=== PATIENT | female | born 1955 | race Caucasian/White ===

== ENCOUNTER 2018-10-28 19:30 | Emergency (ER) | payer OTHER ==
[2018-10-28 19:46] VITALS: BP 114/81; PULSE 74; TEMP 99; BMI 26.5
--- NOTE | 2018-10-28 20:35 | PDOC ---
History of Present Illness - General Chief Complaint: Cold Symptoms Stated Complaint: NOSE BLEED, SICK Time Seen by Provider: 10/28/18 20:02 Past History - Past Medical History Allergies/Adverse Reactions: Allergies Allergy/AdvReac Type Severity Reaction Status Date / Time No Known Allergies Allergy Verified 10/28/18 19:46 Home Medications: Ambulatory Orders Albuterol Sulfate Inhaler - [Ventolin HFA Inhaler -] 1 - 2 inh PO Q4H #1 inhaler 10/28/18 Amox-Tr/K Cl [Augmentin - 875Mg Tablet] 1 tab PO BID #20 tablet 10/28/18 Methylprednisolone [Medrol Dose Robert] 4 mg PO ASDIR #21 tablet 10/28/18 Sodium Chloride [Saline Nasal [place]] 1 spray NS QID #1 bottle 10/28/18 COPD: No Diabetes: Yes HTN: Yes - Suicide/Smoking/Psychosocial Hx Smoking History: Never smoked Have you smoked in the past 12 months: No Information on smoking cessation initiated: No Hx Alcohol Use: No Drug/Substance Use Hx: No *Physical Exam - Vital Signs Last Vital Signs Temp Pulse Resp BP Pulse Ox 99.0 F 74 16 114/81 100 10/28/18 19:41 10/28/18 19:41 10/28/18 19:41 10/28/18 19:41 10/28/18 19:41 *DC/Admit/Observation/Transfer Diagnosis at time of Disposition: Bronchitis Sinusitis Qualifiers: Sinusitis location: maxillary Chronicity: acute Recurrence: recurrent Qualified Code(s): J01.01 - Acute recurrent maxillary sinusitis - Discharge Dispostion Disposition: HOME Condition at time of disposition: Stable Decision to Admit order: No - Prescriptions Prescriptions: Albuterol Sulfate Inhaler - [Ventolin HFA Inhaler -] 1 - 2 inh PO Q4H #1 inhaler Amox-Tr/K Cl [Augmentin - 875Mg Tablet] 1 tab PO BID #20 tablet Methylprednisolone [Medrol Dose Robert] 4 mg PO ASDIR #21 tablet Sodium Chloride [Saline Nasal [place]] 1 spray NS QID #1 bottle - Referrals Referrals: Louis Moore MD [Staff Physician] - - Patient Instructions Printed Discharge Instructions: DI for Acute Bronchitis, DI for Sinusitis Additional Instructions: You have a sinus infection and bronchitis Take the medications as directed Follow up with your primary care doctor this week Return to the ED For any new or worsening symptoms - Post Discharge Activity
[2018-10-28] MEDS ORDERED: DEXAMETHASONE LIQUID 0.5 MG/5 ML 240 ML BULK BOTTLE PO ONE (20:36)
[2018-10-28] MEDS ORDERED: ALBUTEROL SO4 2.5/IPRATROPIUM 0.5 INH SOL 3 ML VIAL.NEB. NEB ONE ×2 (20:36→20:48)
[2018-10-28] MEDS ORDERED: OXYMETAZOLINE 0.05% NASAL SOLUTION 15 ML BOTTLE NS ONE (20:36)
[2018-10-28] MEDS ORDERED: DEXAMETHASONE SOD PHOSPHATE 10 MG/1 ML VIAL ONE (20:48)
== END 2018-10-28 23:42 | disposition home or self-care (01) ==
LOC: JERFT 19:30
PROC: 3E0F7GC Introduction of Other Therapeutic Substance into Respiratory Tract, Via Natural or Artificial Opening (ICD-10-PCS; principal; 2018-10-28)
DX: J40 Bronchitis, not specified as acute or chronic (principal); J01.01 Acute recurrent maxillary sinusitis; I10 Essential (primary) hypertension; E11.9 Type 2 diabetes mellitus without complications
CPT/HCPCS: 71046-TC-FY; 82962; 94640; 99282-25